=== PATIENT | female | born 1950 | race Caucasian/White ===

== ENCOUNTER 2019-12-12 10:31 | Inpatient (IN) ==
--- NOTE | 2019-12-06 13:44 | EKG Report ---
Test Performed on : 12/06/2019 1:33:30 PM Test Reason : PAT Blood Pressure : / mmHG Vent. Rate : 079 BPM Atrial Rate : 079 BPM P-R Int : 156 ms QRS Dur : 068 ms QT Int : 398 ms P-R-T Axes : 072 052 054 degrees QTc Int : 456 ms Normal sinus rhythm. Septal infarct , age undetermined Abnormal ECG No previous ECGs available Confirmed by Dejan Nuñez MD ([id number]) on 12/07/2019 8:40:40 AM
[2019-12-06 13:52] LABS: HEMATOCRIT 42.5 % (37.0-47.0); HEMOGLOBIN 13.7 g/dL (12.0-16.0); MCH 29.5 PG (27-31); MCHC 32.2 g/dL (33-37); MCV 91.4 FL (81-99); MPV 9.2 FL (7.4-10.4); RBC 4.65 XMIL (4.2-5.4); RDW 13.9 % (11.5-14.5); WBC 11.2 X1000 (4.8-10.8)
[2019-12-06 14:30] LABS: CALCIUM 8.9 mg/dL (8.8-10.2); CREATININE 1.1 mg/dL (0.5-0.9); POTASSIUM 4.5 mmol/L (3.5-5.1)
[~2019-12-12 10:31] MED LIST: DIPRIVAN 1% ONE; NEOSTIGMINE ONE; QUELICIN (DOSE) ONE; ROBINUL ONE; XYLOCAINE-MPF 2% ONE; ZEMURON ONE
[2019-12-12] MEDS ORDERED: LR 1,000 ML ONE (11:27)
[2019-12-12] MEDS ORDERED: KEFZOL 1 GM/D5W 1 GM/50 ML IVPB ONE (11:27)
[2019-12-12] MEDS ORDERED: HEPARIN ONE ×2 (11:52)
[2019-12-12] MEDS ORDERED: SENSORCAINE-MPF 0.5%/EPI 1:200,000 ONE (11:52)
[2019-12-12] MEDS ORDERED: KEFZOL ONE (11:52)
[2019-12-12] MEDS ORDERED: NS 2,000 ML ONE (11:53)
[2019-12-12] MEDS ORDERED: OFIRMEV 1000 MG/ISOTONIC SOLN 1,000 MG/100 ML BOTTLE ONE (12:41)
[2019-12-12] MEDS ORDERED: ZOFRAN ONE (12:41)
[2019-12-12] MEDS ORDERED: TORADOL ONE (12:41)
[2019-12-12] MEDS ORDERED: DECADRON ONE (12:41)
[2019-12-12] MEDS ORDERED: VENTOLIN HFA ONE (12:50)
[2019-12-12] MEDS ORDERED: LABETALOL (DOSE) ONE ×2 (13:11→14:33)
[2019-12-12] MEDS ORDERED: HEPARIN (DOSE) ONE (13:19)
[2019-12-12] MEDS ORDERED: ZEMURON ONE (13:21)
[2019-12-12] MEDS ORDERED: BRIDION ONE (13:53)
[2019-12-12] MEDS ORDERED: DILAUDID ONE (14:34)
[2019-12-12] MEDS ORDERED: NS 1,000 ML ONE (15:43)
[2019-12-12] MEDS: PHENERGAN ONE ×2 (16:00→16:13)
[2019-12-12] MEDS: NORCO-10 ONE ×2 (16:05→16:13)
[2019-12-12] MEDS ORDERED: DILAUDID IV PRN (16:26)
[2019-12-12] MEDS ORDERED: ZOFRAN IV PRN (16:26)
[2019-12-12 17:11] LABS: URINE SOURCE CATH
[2019-12-12 17:14] LABS: BILIRUBIN URINE NEGATIVE (NEGATIVE); BLOOD URINE TRACE (NEGATIVE); COLOR YELLOW; GLUCOSE URINE NEGATIVE (NEGATIVE); KETONE URINE 40 mg/dL (NEGATIVE); LEUKOCYTES URINE NEGATIVE (NEGATIVE); NITRITE URINE NEGATIVE (NEGATIVE); PROTEIN URINE TRACE mg/dL (NEGATIVE); TURBIDITY URINE CLEAR (CLEAR); UR EPITHELIAL CELLS <10 /HPF (<10); URINE BACTERIA NEGATIVE /HPF; URINE RBC <10 /HPF (<10); URINE WBC <10 /HPF (<10); UROBILINOGEN URINE NORMAL (NORMAL)
[2019-12-12] MEDS: NEURONTIN PO SCH (17:18)
[2019-12-12] MEDS: NS 1,000 ML IV SCH (17:57)
--- NOTE | 2019-12-12 18:10 | OPERATIVE NOTE ---
PROCEDURE DATE: 12/12/2019 PROCEDURE: 1. Femoral-femoral bypass using an 8 mm Hemashield collagen-impregnated graft. 2. Left SFA atherectomy with an H1-LS atherectomy catheter and balloon angioplasty using a 5 x 12 Inpact drug-coated balloon. SURGEON: Ruddy Gloria MD. CHALK MACHINE OPERATOR: Dr. Voss who assisted throughout the entirety of the procedure with the bypass and the angioplasty. SECOND CHALK MACHINE OPERATOR: Calderon Hill RN. PREOPERATIVE DIAGNOSIS: Atherosclerosis with left lateral malleolus ulcer and left toe ulcer. POSTOP DIAGNOSIS: Atherosclerosis with left lateral malleolus ulcer and left toe ulcer. FINDINGS: The left common and external iliac were occluded. The left SFA was occluded for 15 cm. There was 2 vessel runoff to the foot. The primary dominant vessel being the anterior tibial artery with flow all the way to the arch. DESCRIPTION OF PROCEDURE: Satisfactory general endotracheal anesthesia was achieved. The right groin, left groin, left leg were prepped and draped in a sterile fashion. An Ioban drape was used. We made a vertical incision in the left groin, dissected down to the common femoral artery. We surrounded the branch vessels with vessel loops. I felt a pulse just above the inguinal ligament, so I divided the inguinal ligament and dissected into the external iliac. I decided to shoot an arteriogram to see if in fact there was inflow from the left iliac system. So we used a needle and a wire and sheath, used a 6-Indonesian sheath, and we did not get easy passage of the sheath. I did shoot an arteriogram and the left common and external iliac were occluded and the flow that we could palpate was from a collateral vessel. So we placed a 6-0 Prolene figure-of- eight stitch there and aborted further attempts to use the left iliac system as our inflow. We then turned our attention to the right groin, made a vertical incision there. We gave the patient 9000 units of heparin. After dissecting out the common femoral on the right side, we surrounded it with an umbilical tape proximally, vessel loops distally. We then tunneled an 8 mm Hemashield collagen-impregnated graft from the right groin to the left groin. After the heparin had circulated for 3 minutes, we then occluded flow in the common femoral at the inguinal ligament with a DeBakey clamp and used a vessel loop distally. We then incised the artery on the anteromedial aspect. We made the hole big enough to match the 8 mm graft. We then used a 5-0 Prolene stitch to do the anastomosis between the end of the graft and the sidewall of the common femoral artery. Upon completion of that, we then allowed flow, clamping off the graft and allowing flow in the diomede artery. We then turned our attention to the left side. We once again occluded flow with our vessel loops in the branch vessels and clamped off the common femoral. We then incised the artery on its anterior aspect. We got backbleeding from the deep femoral and the superficial femoral. We extended our incision down onto the takeoff of the superficial femoral. We then cut the graft to match the arteriotomy and constructed this anastomosis again with a 5-0 Prolene stitch. Just prior to completion, we back bled the vessels. We then flushed the graft and then finished the anastomosis and flow was established. One extra stitch was used near the heel to achieve satisfactory hemostasis. A pulse was noted within the SFA and the deep femoral. We then stuck the SFA with a needle and passed a wire followed by a 7-Indonesian sheath. We then shot an arteriogram of the left SFA and we found an occlusion in the distal SFA from the midthigh down to the adductor canal. We then passed a Glidewire followed by a Trailblazer. We were able to traverse the occlusion into the popliteal. We removed the wire, shot an arteriogram through the Trailblazer, and we were in the normal lumen of the popliteal artery. We then changed to a Nitrex 0.14 wire, passed it into the tibial vessels, and obtained an H1-LS atherectomy catheter. We then treated the occlusion in all 4 quadrants. After treating all 4 quadrants of the occlusion, we then shot an arteriogram and we did have patency. I chose a 5 x 12 cm paclitaxel impregnated Inpact CT balloon and treated 12 cm of the occlusion, expanding the balloon to its nominal pressures for 3 minutes. We then pulled the balloon back slightly after completing that and ballooned the rest of the area that we had treated so that the whole 15 cm was treated with the balloon. Completion arteriography then showed completely satisfactory patency with normal lumen to the vessel and the collaterals and basically resolved themselves. The flow was continuous through the popliteal into the trifurcation and the major vessel to the foot was the anterior tibial which followed all the way to the arch of the foot. Posterior tibial was also patent, but it was small and diminutive. We were satisfied with the result. We then used a 6-0 Prolene lazawc-tb-jtrer stitch to close the hole in the artery as the sheath was removed. We irrigated both groins with antibiotic impregnated saline. We then proceeded to close the inguinal ligament on the left side with a 2-0 Polysorb running. We then closed the subcutaneous tissue of the left groin with a running 2-0 Polysorb and then interrupted 3-0 Polysorb. On the right side, 2-0 Polysorb running x2. We injected 0.5 Marcaine with epinephrine in the subcutaneous tissue on both sides to achieve some hemostasis of the wounds. We then closed the skin with chito on both sides. Sterile dressings were applied. She tolerated it well. She had 200 mL of blood loss, 60 mL of contrast was used. She was sent to the recovery room in satisfactory condition. cc: Ruddy Gloria MD
[2019-12-12] MEDS ORDERED: PLAVIX PO ONE (19:04)
[2019-12-12] MEDS ORDERED: ASPIRIN PO ONE (19:05)
[2019-12-12] MEDS ORDERED: ASPIRIN PO SCH (19:15)
[2019-12-12] MEDS: KEFZOL 1 GM/D5W 1 GM/50 ML IVPB IV SCH (21:46)
[2019-12-12] MEDS: PRINIVIL PO SCH (21:47)
[2019-12-12] MEDS: PERIDEX MT SCH (21:47)
[2019-12-13] MEDS: NS 1,000 ML IV SCH ×2 (03:01→13:29)
[2019-12-13] MEDS: KEFZOL 1 GM/D5W 1 GM/50 ML IVPB IV SCH ×3 (04:25→19:54)
[2019-12-13] MEDS: NORCO-10 PO PRN ×3 (05:22→19:59)
[2019-12-13 07:13] LABS: BASO# 0.01 X1000 (0.0-0.2); BASO% 0.1 % (0.0-0.8); HEMATOCRIT 38.5 % (37.0-47.0); HEMOGLOBIN 12.6 g/dL (12.0-16.0); IMM GRAN# 0.05 X1000 (0.0-0.04); IMM GRAN% 0.3 % (0.0-0.5); LYMPH# 1.68 X1000 (1.2-3.4); LYMPH% 10.2 % (20.5-51.1); MCH 29.4 PG (27-31); MCHC 32.7 g/dL (33-37); MCV 89.7 FL (81-99); MONO# 1.27 X1000 (0.11-0.59); MONO% 7.7 % (1.7-9.3); MPV 9.1 FL (7.4-10.4); NEUT# 13.45 X1000 (1.4-6.5); NEUT% 81.7 % (42.2-75.2); PLT 335 X1000 (130-400); RBC 4.29 XMIL (4.2-5.4); RDW 13.6 % (11.5-14.5); WBC 16.46 X1000 (4.8-10.8)
[2019-12-13 07:46] LABS: AGAP 11; BUN 11 mg/dL (8-22); CALCIUM 8.4 mg/dL (8.8-10.2); CHLORIDE 103 mmol/L (98-107); COSMO 278; CREATININE 0.9 mg/dL (0.5-0.9); ESTIMATED GFR > 60; GLUCOSE 109 mg/dL (70-104); POTASSIUM 3.8 mmol/L (3.5-5.1); SODIUM 139 mmol/L (136-145); TCO2 25 mmol/L (25-35)
--- NOTE | 2019-12-13 08:44 | GENERAL SURGERY PROGRESS NOTE ---
DATE: 12/13/2019 She is postop day 1 after a femorofemoral bypass and a left SFA atherectomy with balloon angioplasty. She is afebrile with stable hemodynamics. Her foot is warm. She has good Doppler flow at the dorsalis pedis and posterior tibial positions. We will continue with aspirin and Plavix. White count today is 16,000, hemoglobin 12.6. We will continue with Kefzol. She will come to debridement of her ankle at some point. cc: Ruddy Gloria MD
[2019-12-13] MEDS: NEURONTIN PO SCH ×3 (10:04→18:39)
[2019-12-13] MEDS: ASPIRIN PO SCH (10:04)
[2019-12-13] MEDS: NICODERM PATCH TD SCH (10:04)
[2019-12-13] MEDS: PERIDEX MT SCH ×3 (10:04→22:57)
[2019-12-13] MEDS: PLAVIX PO SCH (10:04)
--- NOTE | 2019-12-13 19:50 | GENERAL SURGERY PROGRESS NOTE ---
DATE: 12/13/2019 Ms. Iglesias's foot remains warm. I will plan to do an excisional debridement of her left ankle tomorrow in the operating room. I discussed this with her. She understands and agrees to proceed. cc: Ruddy Gloria MD
[2019-12-13] MEDS: PRINIVIL PO SCH ×2 (19:54→22:56)
[2019-12-14] MEDS: NORCO-10 PO PRN ×3 (00:09→23:52)
[2019-12-14] MEDS: NS 1,000 ML IV SCH ×3 (00:15→21:18)
[2019-12-14] MEDS: KEFZOL 1 GM/D5W 1 GM/50 ML IVPB IV SCH ×3 (03:55→19:36)
[2019-12-14 07:54] LABS: BASO# 0.03 X1000 (0.0-0.2); BASO% 0.2 % (0.0-0.8); EOS# 0.01 X1000 (0.0-0.7); EOS% 0.1 % (0.0-10.0); HEMATOCRIT 42.9 % (37.0-47.0); HEMOGLOBIN 14.1 g/dL (12.0-16.0); IMM GRAN# 0.02 X1000 (0.0-0.04); IMM GRAN% 0.1 % (0.0-0.5); LYMPH# 1.61 X1000 (1.2-3.4); LYMPH% 11.4 % (20.5-51.1); MCH 29.7 PG (27-31); MCHC 32.9 g/dL (33-37); MCV 90.3 FL (81-99); MONO# 0.95 X1000 (0.11-0.59); MONO% 6.7 % (1.7-9.3); MPV 9.5 FL (7.4-10.4); NEUT# 11.47 X1000 (1.4-6.5); NEUT% 81.5 % (42.2-75.2); PLT 344 X1000 (130-400); RBC 4.75 XMIL (4.2-5.4); RDW 13.9 % (11.5-14.5); WBC 14.09 X1000 (4.8-10.8)
[2019-12-14] MEDS: PERIDEX MT SCH ×3 (09:12→21:18)
[2019-12-14] MEDS: NICODERM PATCH TD SCH (09:12)
[2019-12-14] MEDS ORDERED: DIPRIVAN 1% ONE (09:21)
[2019-12-14] MEDS ORDERED: FENTANYL ONE (09:21)
[2019-12-14] MEDS ORDERED: HEPARIN (DOSE) ONE (09:55)
[2019-12-14] MEDS ORDERED: DECADRON ONE (09:55)
[2019-12-14] MEDS ORDERED: NEO-SYNEPHRINE ONE (09:55)
[2019-12-14] MEDS ORDERED: ROBINUL ONE (09:55)
[2019-12-14] MEDS ORDERED: ZOFRAN ONE (09:55)
[2019-12-14] MEDS ORDERED: DUONEB (A & A) INH ONE (10:06)
[2019-12-14] MEDS: DILAUDID ONE ×4 (11:30→11:45)
[2019-12-14] MEDS: PHENERGAN ONE ×2 (11:41→11:54)
--- NOTE | 2019-12-14 12:06 | OPERATIVE NOTE ---
PROCEDURE DATE: 12/14/2019 NAME OF PROCEDURE: 1. Excisional debridement of skin and soft tissue of left lateral ankle measuring 3 x 1.5 cm. 2. Excisional debridement of left third toe skin and soft tissue measuring 1 x 1 cm. SURGEON: Ruddy Gloria MD. DRAW PRESS OPERATOR: Dr. Gilbert Ji ([facility] resident MD) PREOPERATIVE DIAGNOSIS: Atherosclerosis with ulceration of the left lateral foot and left third toe. POSTOPERATIVE DIAGNOSIS: Atherosclerosis with ulceration of the left lateral foot and left third toe. INDICATION FOR PROCEDURE: Alice is a 69-year-old who underwent revascularization of her left leg. She now presents for excisional debridement of the eschars of her left foot and toe. DESCRIPTION OF PROCEDURE: Satisfactory general anesthesia was achieved. The left foot was prepped and draped in a sterile fashion. We sharply excised the eschar from the left lateral ankle. It measured 3 x 1.5 cm. It involved the skin and subcutaneous tissue. We got down to viable tissue. We then applied saline gauze. We then did the same to the distal third toe. We did remove the nail at the same time. There was some purulence that was noted, consistent with a paronychia. After the nail and eschar were removed, we then cultured the wound and then placed saline gauze on it as well. She tolerated the procedure satisfactorily and was sent to the recovery room in satisfactory condition. cc: Ruddy Gloria MD [facility]
[2019-12-14] MEDS: NEURONTIN PO SCH ×3 (12:46→17:50)
[2019-12-14] MEDS: ASPIRIN PO SCH (17:50)
[2019-12-14] MEDS: PLAVIX PO SCH (17:50)
[2019-12-14] MEDS: PRINIVIL PO SCH ×2 (19:36→21:18)
[2019-12-15] MEDS: KEFZOL 1 GM/D5W 1 GM/50 ML IVPB IV SCH (04:29)
[2019-12-15] MEDS: NS 1,000 ML IV SCH (06:16)
[2019-12-15] MEDS: NORCO-10 PO PRN ×3 (06:17→16:41)
[2019-12-15] MEDS: NEURONTIN PO SCH ×3 (08:40→16:42)
[2019-12-15] MEDS: PLAVIX PO SCH (08:40)
[2019-12-15] MEDS: ASPIRIN PO SCH (08:40)
[2019-12-15] MEDS: NICODERM PATCH TD SCH (08:41)
[2019-12-15] MEDS: PERIDEX MT SCH ×2 (08:41→20:36)
[2019-12-15] MEDS: SANTYL OINT TOP SCH (08:43)
[2019-12-15] MEDS ORDERED: LOPRESSOR PO ONE (11:20)
[2019-12-15] MEDS ORDERED: SALINE LOCK IV FLUID XX ONE (11:21)
--- NOTE | 2019-12-15 14:19 | Diag Imaging Result Doc PS360 ---
EXAM: CHEST-PORTABLE 12/15/2019 HISTORY: rehab TECHNIQUE: AP portable upright at 1410 COMMENT: There is a nodular opacity in the lower mid left lung which was not present on 11/24/2011. There are no other previous studies available for comparison. IMPRESSION: New pulmonary nodule in the left lower lobe or lingula. Electronically signed by Matheus Buenrostro 12/15/2019 2:17 PM
--- NOTE | 2019-12-15 17:09 | GENERAL SURGERY PROGRESS NOTE ---
DATE: 12/15/2019 Ms. Iglesias has a palpable graft pulse. Her left leg is warm. Her left foot is warm. Her wounds on the ankle and foot look healthy. She is afebrile. She has had a elevated blood pressure this morning. PLAN: Will give her to give her metoprolol 50 mg now. We will continue with Santyl on her wounds. Because she lives alone and because of her social status, I think it would benefit her to go to rehab. We will check into that. She can certainly get up and ambulate as she can. cc: Ruddy Gloria MD
[2019-12-15] MEDS: PRINIVIL PO SCH (20:36)
[2019-12-16] MEDS: NORCO-10 PO PRN ×4 (00:22→18:06)
[2019-12-16] MEDS: NICODERM PATCH TD SCH (08:12)
[2019-12-16] MEDS: SANTYL OINT TOP SCH (08:12)
[2019-12-16] MEDS: PLAVIX PO SCH (08:12)
[2019-12-16] MEDS: NEURONTIN PO SCH ×3 (08:12→18:06)
[2019-12-16] MEDS: ASPIRIN PO SCH (08:12)
[2019-12-16] MEDS: PERIDEX MT SCH ×2 (08:13→20:13)
[2019-12-16] MEDS ORDERED: MILK OF MAGNESIA PO PRN (08:49)
--- NOTE | 2019-12-16 09:40 | Diag Imaging Result Doc PS360 ---
EXAM: CT THORAX W/CONTRAST 12/16/2019 HISTORY: pulmonary nodule TECHNIQUE: This exam was performed using automated exposure control, adjustment of mA or kV according to patient size, and/or use of iterative reconstruction technique. COMMENT: There are no previous thoracic studies. There are considerable atherosclerotic calcifications in the thoracic aorta. There is slight dilatation of the distal descending thoracic aorta without evidence of dissection. There are no filling defects in the pulmonary arteries. There is no evidence of significant adenopathy. There are coronary calcifications. There is a moderately large amount of stool in the visualized portion of the colon. No definite acute abnormalities are present in the visualized portion of the abdomen. There is a lobulated pleural-based nodule present in the left lower lobe on image 73 measuring over 19 mm in diameter. There is a small satellite nodule adjacent to this and there is some stranding to the hilum. There is also a small nodule anteriorly in the superior segment on image 72 measuring slightly over 5 mm. There are no apparent calcifications within the nodules. There is no evidence of acute pulmonary parenchymal disease otherwise. IMPRESSION: Noncalcified pulmonary nodules in the left lower lobe. Electronically signed by Matheus Buenrostro 12/16/2019 9:38 AM
[2019-12-16] MEDS: LOPRESSOR PO SCH ×2 (11:08→20:13)
--- NOTE | 2019-12-16 13:11 | GENERAL SURGERY PROGRESS NOTE ---
DATE: 12/16/2019 Ms. Iglesias is sitting up. We are awaiting her rehab placement. Her chest x-ray does show a new pulmonary nodule, so we will obtain a CT of the thorax today. cc: Ruddy Gloria MD
[2019-12-16] MEDS: PRINIVIL PO SCH (20:13)
[2019-12-17] MEDS: NORCO-10 PO PRN ×3 (08:00→17:31)
[2019-12-17] MEDS: SANTYL OINT TOP SCH (08:02)
[2019-12-17] MEDS: ASPIRIN PO SCH (08:02)
[2019-12-17] MEDS: PERIDEX MT SCH ×2 (08:02→20:32)
[2019-12-17] MEDS: PLAVIX PO SCH (08:02)
[2019-12-17] MEDS: NEURONTIN PO SCH ×3 (08:02→17:29)
[2019-12-17] MEDS: LOPRESSOR PO SCH ×2 (08:02→20:32)
[2019-12-17] MEDS: NICODERM PATCH TD SCH (08:02)
--- NOTE | 2019-12-17 10:17 | GENERAL SURGERY PROGRESS NOTE ---
DATE: 12/17/2019 Ms. Iglesias's left ankle wound continues to look better. Her left leg is warm. Her CT scan did show a peripheral nodule that should be amenable to percutaneous biopsy. The plan will be to ask for a CT-guided biopsy tomorrow. We will hold her aspirin and Plavix today in view of her imminent biopsy. I am pleased with her progress though with her leg. Her blood pressure is better controlled. cc: Ruddy Gloria MD
[2019-12-17] MEDS: PRINIVIL PO SCH (20:32)
[2019-12-18] MEDS: NORCO-10 PO PRN ×3 (05:22→16:20)
[2019-12-18] MEDS: LOPRESSOR PO SCH (08:07)
[2019-12-18] MEDS: NICODERM PATCH TD SCH (08:07)
[2019-12-18] MEDS: PERIDEX MT SCH (08:07)
[2019-12-18] MEDS: NEURONTIN PO SCH ×2 (08:07→16:20)
[2019-12-18] MEDS: SANTYL OINT TOP SCH (08:09)
--- NOTE | 2019-12-18 08:34 | GENERAL SURGERY PROGRESS NOTE ---
DATE: 12/18/2019 SUBJECTIVE: She is afebrile. Heart rate 72, blood pressure 146/84. Her wounds are improving. She has good Doppler flow at the dorsalis pedis, posterior tibial position. The plan today is a lung biopsy of the peripherally positioned nodule in the left lung. She is a smoker. So certainly this is there is some concern that this represents malignancy. We changed her bandage today, reapplied Santyl to her wounds. We are awaiting placement. cc: Ruddy Gloria MD
[2019-12-18 08:41] LABS: INR 0.99; PROTIME 13.2 Seconds (11.0-16.0)
[2019-12-18 08:42] LABS: PTT 35.4 Seconds (22.3-41.8)
--- NOTE | 2019-12-18 11:16 | Diag Imaging Result Doc PS360 ---
CHEST-2 VIEWS - 12/18/2019 INDICATION: POST BIOPSY INS/EXP COMPARISON: 12/15/2019 FINDINGS: There is no pneumothorax. IMPRESSION: No evidence of complication. Electronically signed by Ankur Ferguson 12/18/2019 11:14 AM
[2019-12-18 11:31] VITALS: BP 156/105
--- NOTE | 2019-12-18 13:53 | DISCHARGE SUMMARY ---
ADMISSION DATE: 12/12/2019 DISCHARGE DATE: 12/18/2019 PRIMARY DISCHARGE DIAGNOSES: 1. Atherosclerosis with ulceration. 2. Left pulmonary nodule. PRIMARY PROCEDURE: 1. Femoral-femoral bypass and a left SFA atherectomy with balloon angioplasty. 2. A CT-guided lung biopsy. HISTORY: This 69-year-old lady sent to me with a nonhealing ulceration of her left ankle and toe. She was found to have significant vascular disease and she is admitted for revascularization. She is a long-time smoker. She has a history of hypertension. HOSPITAL COURSE: Following her admission, she was taken to the operating room and underwent the fem-fem graft and left SFA atherectomy and balloon angioplasty. Postoperatively, she did generally well. Her left foot and leg were obviously warmer. She was maintained on Kefzol postop. Through the course of her stay, she did not develop any fever. Her wound did improve with the use of Santyl. Doppler flow was significantly improved at the foot level and she noticed an obvious difference. In the course of her stay, a chest x-ray was done revealing a left pulmonary nodule at the periphery. This was suspicious for malignancy. In view of the fact that she is a smoker, we did order a CT-guided biopsy of the mass, which was done uneventfully. PLAN: Discharge her to rehab to stay on aspirin and Plavix for a few weeks in hopes that her foot will heal. She is to return to see me in the office in 2 weeks at which time we should have the report back and decide if she needs any operative intervention regarding her chest. Her hypertension was treated in the hospital with the with Prinivil, which is her usual medication. Metoprolol 50 mg b.i.d. was added. She is to stay off cigarettes. She will return to see me in the office in 2 weeks. cc: Ruddy Gloria MD
--- NOTE | 2019-12-18 14:56 | Diag Imaging Result Doc PS360 ---
CHEST-2 VIEWS - 12/18/2019 2:46 PM INDICATION: post lung Biopsy COMPARISON: 11:01 AM FINDINGS: There is no pneumothorax. No other abnormalities. IMPRESSION: No complication. Electronically signed by Ankur Ferguson 12/18/2019 2:53 PM
--- NOTE | 2019-12-18 14:57 | Diag Imaging Result Doc PS360 ---
CT GUIDED BIOPSY LUNG - 12/18/2019 INDICATION: left lung nodule TECHNIQUE: The risks and benefits of the procedure were discussed with the patient. All questions were answered. Written and verbal informed consent was obtained. Overlying skin was prepped and draped in sterile fashion. Anesthesia was achieved with injection of 10 cc of 1% lidocaine. COMPARISON: 12/16/2019 FINDINGS: The left lower lobe pulmonary nodule was biopsied with the 6/10 cm 19/20 gauge Temno biopsy needle set. Six biopsy specimens were obtained. The needles were withdrawn intact. The patient reported no symptoms from the procedure. Postprocedural chest x-rays demonstrated no pneumothorax. IMPRESSION: Successful and uncomplicated CT-guided left lower lobe pulmonary nodule biopsy. Electronically signed by Ankur Ferguson 12/18/2019 2:55 PM
== END 2019-12-18 16:46 | DRG 254 ==
LOC: SURHOLD 10:31 → 4N 14:36
PROVIDERS: ADMIT Surgery; ATTEND Surgery